=== PATIENT | male | born 1985 | race Caucasian/White ===

== ENCOUNTER 2017-04-27 20:30 | Emergency (ER) | payer MEDICAID, OTHER ==
[2017-04-27 20:35] VITALS: TEMP 98.1
--- NOTE | 2017-04-27 22:29 | ED PDOC ---
HPI: Psych/Substance Abuse Time Seen by Provider: 04/27/17 20:36 Chief Complaint (Nursing): Alcohol Ingestion Chief Complaint (Provider): Alcohol Ingestion Additional Complaint(s): 31 y/o male presents to the emergency department via ambulance after he was found drunk outside after alcohol intoxication. Reports he smoked PCP a few fays ago. Patient has no other history. Past Medical History Reviewed: Historical Data, Nursing Documentation, Vital Signs Vital Signs: Last Vital Signs Temp 98.1 F 04/27/17 20:32 Pulse 93 H 04/27/17 20:32 Resp 16 04/27/17 20:32 BP 150/78 04/27/17 20:32 Pulse Ox 98 04/27/17 20:32 - Medical History PMH: Fractures (Right Leg) Denies: Chronic Kidney Disease - Family History Family History: States: Unknown Family Hx - Immunization History Hx Tetanus Toxoid Vaccination: No (UTO) Hx Influenza Vaccination: No (UTO) Hx Pneumococcal Vaccination: No (UTO) - Home Medications Home Medications: Ambulatory Orders Medication Instructions Recorded No Known Home Med 05/02/15 - Allergies Allergies/Adverse Reactions: Allergies Allergy/AdvReac Type Severity Reaction Status Date / Time shellfish Allergy Unknown Uncoded 01/07/17 22:37 Review of Systems Review Of Systems: ROS cannot be obtained secondary to pt's inabilty to answer questions. (patient is intoxicated) Physical Exam - Reviewed Nursing Documentation Reviewed: Yes Vital Signs Reviewed: Yes - Physical Exam Appears: Positive for: Non-toxic, No Acute Distress Head Exam: Positive for: ATRAUMATIC, NORMAL INSPECTION, NORMOCEPHALIC Skin: Positive for: Normal Color, Warm, Dry Eye Exam: Positive for: Normal appearance (Bilateral bloodshot eyes) Cardiovascular/Chest: Positive for: Regular Rate, Rhythm. Negative for: Murmur Respiratory: Positive for: Normal Breath Sounds. Negative for: Accessory Muscle Use, Respiratory Distress Gastrointestinal/Abdominal: Positive for: Normal Exam, Soft. Negative for: Tenderness Neurologic/Psych: Positive for: Alert (Patient is somnolent. ) - Laboratory Results Result Diagrams: 04/28/17 07:10 04/28/17 07:10 - ECG O2 Sat by Pulse Oximetry: 98 (RA) Pulse Ox Interpretation: Normal Medical Decision Making Medical Decision Making: Time: 2048 Initial Impression: Alcohol intoxication Initial Plan: --Acetaminophen --Alcohol Serum --BMP --BMP --Drug Screen, Urine --Salicylate --CBC w/ diff --Urinalysis --Reevaluation --Pending sobriety Time: 2127 --AccuCheck: Normal 88 --Alcohol, Quantitative: 13 (H) 23:45 --Alcohol was low but waiting on detox. During reevaluation patient was confused , combative and walking in other people's room. Patient is agitated. He was restrained and given Haldol to relieve agitation. Waiting on urine and rest of labs. 03:18 --Patient is restless and screaming. He was placed on restraints again as pt is unsafe. 04:51 --Patient is calm and resting. Waiting for detox process for pcp. 05:52 --Patient still appears mildly confused due to effects of pcp. 07:00 Patient will be signed out to Dr. Soliman, pending sobriety and crisis evaluation Scribe~Attestation: Documented by Bianca Cuevas, acting as a scribe for River Talamantes MD. Provider Scribe~Attestation: All medical record entries made by the Scribe were at my direction and personally dictated by me. I have reviewed the chart and agree that the record accurately reflects my personal performance of the history, physical exam, medical decision making, and the department course for this patient. I have also personally directed, reviewed, and agree with the discharge instructions and disposition. Disposition - Clinical Impression Clinical Impression: PCP intoxication - Patient ED Disposition Is Patient to be Admitted: Transfer of Care - Disposition Referrals: [facility] [Outside] Disposition: Transfer of Care Disposition Time: 07:00 Condition: FAIR Instructions: Polysubstance Abuse (ED) Forms: [employer] (Burundian) Patient Signed Over To: Deng Soliman
[2017-04-28 06:52] VITALS: PULSE 70
[2017-04-28] MEDS ORDERED: DiphenhydrAMINE 50 mg/ml Inj IM STA (07:16)
[2017-04-28 07:19] LABS: BASO % 0.8 % (0.0-2.0); EOS # 0.1 K/uL (0.0-0.7); EOS % 1.2 % (0.0-4.0); HEMATOCRIT 39.5 % (35.0-51.0); LYMPH # 1.2 K/uL (1.0-4.3); LYMPH % 20.5 % (20.0-40.0); MEAN CELL VOLUME 95.2 fl (80.0-94.0); MEAN CORPUSCULAR HEMOGLOBIN 31.3 pg (27.0-31.0); MEAN CORPUSCULAR HGB CONC 32.9 g/dL (33.0-37.0); MONO # 0.6 K/uL (0.0-0.8); MONO % 10.2 % (0.0-10.0); NEUT # 4.1 K/uL (1.8-7.0); NEUT % 67.3 % (50.0-75.0); RED CELL DISTRIBUTION WIDTH 13.1 % (11.5-14.5)
--- NOTE | 2017-04-28 07:20 | ED PDOC ---
- Laboratory Results Result Diagrams: 04/28/17 07:10 04/28/17 07:10 - ECG O2 Sat by Pulse Oximetry: 98 (RA) - Progress Re-evaluation Time: 10:58 Condition: Improved Medical Decision Making Medical Decision Makin --Patient is signed over to me by Dr. Talamantes pending sobriety and crisis evaluation. Scribe Attestation: Documented by Mayo Rendon acting as a scribe for Deng Soliman MD. Scribe Attestation: All medical record entries made by the Scribe were at my direction and personally dictated by me. I have reviewed the chart and agree that the record accurately reflects my personal performance of the history, physical exam, medical decision making, and the department course for this patient. I have also personally directed, reviewed, and agree with the discharge instructions and disposition. Disposition - Clinical Impression Clinical Impression: PCP intoxication - POA Present On Arrival: None - Disposition Referrals: [facility] [Outside] Disposition: Routine/Home Disposition Time: 10:58 Condition: FAIR Instructions: Polysubstance Abuse (ED) Forms: [employer] (French)
[2017-04-28 07:32] LABS: ALCOHOL SERUM < 10 mg/dl (0-10); BLOOD UREA NITROGEN 18 mg/dl (9-20); CALCIUM 9.2 mg/dL (8.4-10.2); CARBON DIOXIDE 28 mmol/L (22-30); CHLORIDE 104 mmol/L (98-107); GFR AFRICAN-AMERICAN > 60; GLUCOSE,RANDOM 85 mg/dL (75-110); POTASSIUM 4.1 MMOL/L (3.6-5.0); SODIUM 140 mmol/l (132-148)
[2017-04-28 08:01] VITALS: BP 103/74; RESP 16
[2017-04-28 10:59] VITALS: O2SAT 98
== END 2017-04-28 11:07 | disposition home or self-care (01) ==
LOC: H.ER 20:30
DX: F16.929 Hallucinogen use, unspecified with intoxication, unspecified (principal); F10.129 Alcohol abuse with intoxication, unspecified
CPT/HCPCS: 80048; 80320; 80324; 80329; 80345; 80346; 80349; 80353; 80358; 80361; 82948; 83992; 85025; 96372; 99285; J1200; J1630

== ENCOUNTER 2017-06-20 21:42 | Emergency (ER) | payer MEDICAID, OTHER ==
[2017-06-20 21:55] VITALS: BP 118/72; PULSE 77; RESP 18; TEMP 97.6; O2SAT 96
[2017-06-20] MEDS ORDERED: Tdap Vaccine 0.5 ml Vial (10-64 yrs) IM ONE ×2 (22:54→23:30)
--- NOTE | 2017-06-21 00:14 | CT ---
EXAM: CT Head Without Intravenous Contrast EXAM DATE/TIME: 06/20/2017 10:54 PM CLINICAL HISTORY: 31 years old, male; Injury or trauma; Fall; Initial encounter; Abrasion and bleeding / hemorrhage and blunt trauma (contusions or hematomas); Consciousness not specified; Face and forehead; Additional info: ETOH, head injury S/P fall TECHNIQUE: Axial computed tomography images of the head/brain without intravenous contrast. All CT scans at this facility use one or more dose reduction techniques, viz.: automated exposure control; ma/kV adjustment per patient size (including targeted exams where dose is matched to indication; i.e. head); or iterative reconstruction technique. Coronal and sagittal reformatted images were created and reviewed. COMPARISON: There are no prior studies for comparison. FINDINGS: Brain: Ventricles are normal in size and configuration. There is no midline shift. There are no intra-axial or extra-axial mass lesions or areas of hemorrhage. There are no abnormal fluid collections. Louis-white differentiation is maintained. Ventricles: See above. Bones: Cranial vault is intact. Soft tissues: There is left frontal scalp swelling. Sinuses: There is no acute sinusitis. Ears and mastoids: Middle ears and mastoids are unremarkable Orbits: Orbital contents are unremarkable. IMPRESSION: No acute intracranial abnormality
--- NOTE | 2017-06-21 00:24 | ED PDOC ---
HPI: Psych/Substance Abuse Time Seen by Provider: 06/20/17 22:05 Chief Complaint (Nursing): Trauma Chief Complaint (Provider): Head Injury and Fall ED Caveat: Intoxicated History Per: EMS History/Exam Limitations: intoxication Onset/Duration Of Symptoms: Unknown Ingestion Of Substance: ETOH Modifying Factor(s): Alcohol Additional Complaint(s): 31 y/o male presents via EMS who reports that the patient had a witnessed fall in the snow, and sustained a laceration to his forehead. Per EMS, the patient admitted to [facility], and has a history of ETOH abuse. Patient is not cooperative on arrival and history is limited secondary to intoxication. PMD: none Past Medical History Reviewed: Historical Data, Nursing Documentation, Vital Signs Vital Signs: Last Vital Signs Temp 97.6 F 06/20/17 21:48 Pulse 77 06/20/17 21:48 Resp 18 06/20/17 21:48 BP 118/72 06/20/17 21:48 Pulse Ox 96 06/20/17 21:48 - Medical History PMH: Depression, Fractures (Right Leg) - Surgical History Other surgeries: leg surgery s/p fracture - Family History Family History: States: Unknown Family Hx - Social History Current smoker - smoking cessation education provided: Yes (1/2 pack per day) Alcohol: > 2 Drinks/Day Drugs: Denies - Immunization History Hx Tetanus Toxoid Vaccination: No (unknown) - Home Medications Home Medications: Ambulatory Orders Medication Instructions Recorded Bacitracin Ointment [Bacitracin] 5 gm TOP BID #30 gm 06/21/17 - Allergies Allergies/Adverse Reactions: Allergies Allergy/AdvReac Type Severity Reaction Status Date / Time shellfish Allergy Unknown SHORTNESS Uncoded 06/20/17 21:48 OF BREATH Review of Systems Review Of Systems: ROS cannot be obtained secondary to pt's inabilty to answer questions. Physical Exam - Reviewed Nursing Documentation Reviewed: Yes Vital Signs Reviewed: Yes - Physical Exam Appears: Positive for: No Acute Distress Head Exam: Positive for: NORMOCEPHALIC Skin: Positive for: Normal Color, Warm, Dry (1.5 cm linear, horizontal laceration just above the lateral aspect of the right eyebrow (-) tenderness (- ) swelling (-) ecchymosis (-) palpable deformity (-) active bleeding.) Eye Exam: Positive for: EOMI (and painless), PERRL, Conjunctival injection ( bilaterally). Negative for: Nystagmus, Periorbital swelling, Periorbital tenderness ENT: Positive for: Pharynx Is (clear, uvula midline.) Neck: Positive for: Painless ROM, Supple. Negative for: Pain On Movement Of Neck Cardiovascular/Chest: Positive for: Regular Rate, Rhythm Respiratory: Positive for: Normal Breath Sounds. Negative for: Decreased Breath Sounds, Respiratory Distress Gastrointestinal/Abdominal: Positive for: Soft. Negative for: Tenderness, Distended, Guarding Back: Negative for: Vertebral Tenderness Extremity: Negative for: Deformity Neurologic/Psych: Positive for: Other (Intoxicated) - ECG O2 Sat by Pulse Oximetry: 96 (RA) Pulse Ox Interpretation: Normal Medical Decision Making Medical Decision Making: Impression: Fall Plan: - FSBS 92 - Tetanus administered - ETOH level 93 - CT head without contract r/o intracranial injury - Laceration repair 1230 CT results follow: FINDINGS: Brain: Ventricles are normal in size and configuration. There is no midline shift. There are no intraaxial or extra-axial mass lesions or areas of hemorrhage. There are no abnormal fluid collections. Louis-white differentiation is maintained. Ventricles: See above. Bones: Cranial vault is intact. Soft tissues: There is left frontal scalp swelling. Sinuses: There is no acute sinusitis. Ears and mastoids: Middle ears and mastoids are unremarkable Orbits: Orbital contents are unremarkable. IMPRESSION: No acute intracranial abnormality Thank you for allowing us to participate in the care of your patient. Dictated and Authenticated by: Thea Frank MD 06/21/2017 12:14 AM Eastern Time ([place] & [place]) 0130 Forehead laceration repair performed by Elaina SHUKLA. Wound irrigated with normal saline and explored. No foreign body noted. No deep structure or tendon involvement. Wound closed with Prolene 6-0 x4 sutures. Bacitracin and DSD applied. Patient tolerated procedure well. 0330 Patient awake, alert, and oriented to person, place, and time. Patient ambulatory in ED with a steady gait and requesting to go home at this time. Patient stable for discharge. Return to ED with any new or worsening symptoms. Patient advised sutures need to be removed in 5 days. Educated on wound care. Scribe Attestation Documented by Destinee Johnson acting as a scrernst Delaney PA-C. Provider Attestation All medical record entries made by the Wayne were at my direction and personally dictated by me. I have reviewed the chart and agree that the record accurately reflects my personal performance of the history, physical exam, medical decision making, and the department course for this patient. I have also personally directed, reviewed, and agree with the discharge instructions and disposition. Disposition - Clinical Impression Clinical Impression: Alcohol intoxication, Head injury, Laceration of forehead - Patient ED Disposition Is Patient to be Admitted: No Counseled Patient/Family Regarding: Studies Performed, Diagnosis, Need For Followup, Rx Given - Disposition Referrals: [facility] [Outside] Disposition: Routine/Home Disposition Time: 03:35 Condition: STABLE Prescriptions: Bacitracin Ointment [Bacitracin] 5 gm TOP BID #30 gm Instructions: Concussion in Adults, Laceration Repair, Laceration Repair With Stitches (DC), Alcohol Abuse and Alcoholism (DC) Forms: [employer] (Sami) Print Language: SALVADOREAN
[2017-06-21] MEDS ORDERED: Lidocaine 1% Inj (20ml) ONE (01:58)
[2017-06-21] MEDS ORDERED: Lidocaine 1% Inj (20ml) IJ STA (02:00)
== END 2017-06-21 03:43 | disposition home or self-care (01) ==
LOC: H.ER 21:42
DX: F10.129 Alcohol abuse with intoxication, unspecified (principal); Y90.4 Blood alcohol level of 80-99 mg/100 ml; S09.90XA Unspecified injury of head, initial encounter; S01.81XA Laceration without foreign body of other part of head, initial encounter; W19.XXXA Unspecified fall, initial encounter; Z23 Encounter for immunization

== ENCOUNTER 2017-07-11 21:15 | Emergency (ER) | payer MEDICAID, OTHER ==
[2017-07-11 21:20] VITALS: BP 125/78; PULSE 92; RESP 18; TEMP 97.4; O2SAT 96
--- NOTE | 2017-07-11 22:06 | ED PDOC ---
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 Patient denies any PCP use but admits to using cocaine last night. He also denies any drug use today. Past Medical History Reviewed: Historical Data, Nursing Documentation, Vital Signs Vital Signs: Last Vital Signs Temp 97.4 F L 07/11/17 21:17 Pulse 92 H 07/11/17 21:17 Resp 18 07/11/17 21:17 BP 125/78 07/11/17 21:17 Pulse Ox 96 07/11/17 21:17 - Medical History PMH: Depression, Fractures (Right Leg) Denies: Diabetes, Hepatitis, HIV, HTN, Chronic Kidney Disease, Seizures, Sexually Transmitted Disease - Surgical History Surgical History: No Surg Hx - Family History Family History: States: Unknown Family Hx - Immunization History Hx Tetanus Toxoid Vaccination: No (unknown) Hx Influenza Vaccination: No (UTO) Hx Pneumococcal Vaccination: No (UTO) - Allergies Allergies/Adverse Reactions: Allergies Allergy/AdvReac Type Severity Reaction Status Date / Time shellfish Allergy Unknown SHORTNESS Uncoded 06/26/17 04:20 OF BREATH Review of Systems ROS Statement: Except As Marked, All Systems Reviewed And Found Negative Physical Exam - Reviewed Nursing Documentation Reviewed: Yes Vital Signs Reviewed: Yes - Physical Exam Appears: Positive for: Non-toxic, No Acute Distress (calm and cooperative ) Head Exam: Positive for: ATRAUMATIC, NORMOCEPHALIC Skin: Positive for: Normal Color, Warm, Dry Eye Exam: Positive for: EOMI, Normal appearance, PERRL Neck: Positive for: Normal, Painless ROM, Supple Cardiovascular/Chest: Positive for: Regular Rate, Rhythm Respiratory: Positive for: CNT, Normal Breath Sounds Extremity: Positive for: Normal ROM. Negative for: Deformity Neurologic/Psych: Positive for: Alert, Oriented (x 3), Gait (steady). Negative for: Motor/Sensory Deficits - ECG O2 Sat by Pulse Oximetry: 96 (RA) Pulse Ox Interpretation: Normal Medical Decision Making Medical Decision Making: Time: 21:23 Impression: drug abuse Patient is stable and will be discharged home. Return to ED if symptoms persist or worsen. Scribe Attestation: Documented by Brigitte Tong, acting as a scribe for Naif Kirkland MD. Provider Scribe Attestation: All medical record entries made by the Scribe were at my direction and personally dictated by me. I have reviewed the chart and agree that the record accurately reflects my personal performance of the history, physical exam, medical decision making, and the department course for this patient. I have also personally directed, reviewed, and agree with the discharge instructions and disposition. Disposition - Clinical Impression Clinical Impression: Cocaine abuse - Patient ED Disposition Is Patient to be Admitted: No - Disposition Referrals: [facility] [Outside] Disposition: Routine/Home Disposition Time: 22:00 Condition: STABLE Instructions: Cocaine Use Disorder Forms: [employer] (Irish)
== END 2017-07-11 21:57 | disposition home or self-care (01) ==
LOC: H.ER 21:15
DX: F14.10 Cocaine abuse, uncomplicated (principal); F32.9 Major depressive disorder, single episode, unspecified

== ENCOUNTER 2017-07-17 20:11 | Emergency (ER) | payer OTHER ==
[2017-07-17 20:23] VITALS: BP 123/79; PULSE 81; RESP 15; TEMP 97.2; O2SAT 97
[2017-07-17] MEDS ORDERED: Naproxen 500 MG TAB PO STA (21:00)
[2017-07-17] MEDS ORDERED: Naproxen 500 MG TAB PO ONE (21:12)
--- NOTE | 2017-07-17 21:24 | ED PDOC ---
Lower Extremity Pain/Injury Time Seen by Provider: 07/17/17 20:41 Chief Complaint (Nursing): Lower Extremity Problem/Injury Chief Complaint (Provider): Chronic right ankle pain History Per: Patient History/Exam Limitations: no limitations Onset/Duration Of Symptoms: Persistent Current Symptoms Are (Timing): Still Present Additional Complaint(s): 31 year old male with history of right ankle fracture presets to the ED complaining of right ankle pain. Patient reports pain is chronic and intermittent. He had suyrgery 2 years ago to repair a right ankle fracture and is here requesting pain medication. Otherwise: (-) no recent trauma, (-) injury , (-) swelling, (-) numbness, (-) weakness. PMD: Dr. Randell Pace MD Past Medical History Reviewed: Historical Data, Nursing Documentation, Vital Signs Vital Signs: Last Vital Signs Temp 97.2 F L 07/17/17 20:19 Pulse 81 07/17/17 20:19 Resp 15 07/17/17 20:19 BP 123/79 07/17/17 20:19 Pulse Ox 97 07/17/17 20:19 - Medical History PMH: Depression, Fractures (Right Leg (rt foot/ankle)) Denies: Diabetes, Hepatitis, HIV, HTN, Chronic Kidney Disease, Seizures, Sexually Transmitted Disease - Surgical History Other surgeries: right ankle repair - Family History Family History: States: Unknown Family Hx - Immunization History Hx Tetanus Toxoid Vaccination: No (unknown) Hx Influenza Vaccination: No (UTO) Hx Pneumococcal Vaccination: No (UTO) - Home Medications Home Medications: Ambulatory Orders Medication Instructions Recorded Ibuprofen [Motrin] 600 mg PO Q6H #14 tab 07/16/17 - Allergies Allergies/Adverse Reactions: Allergies Allergy/AdvReac Type Severity Reaction Status Date / Time shellfish Allergy Unknown SHORTNESS Uncoded 07/17/17 20:23 OF BREATH Review of Systems ROS Statement: Except As Marked, All Systems Reviewed And Found Negative Musculoskeletal: Positive for: Foot Pain (right ankle pain) Physical Exam - Reviewed Nursing Documentation Reviewed: Yes Vital Signs Reviewed: Yes - Physical Exam Comments: GENERAL APPEARANCE: Patient is awake, alert, oriented x 3, in no acute distress. SKIN: Warm, dry; (-) cyanosis EXTREMITY: (+) healed surgical scar to medical aspect of right ankle, (-) tenderness, (-) edema, (-) erythema, (+) full ROM, (+) distal pulses, (+) distal sensation intact. - ECG O2 Sat by Pulse Oximetry: 97 (RA) Pulse Ox Interpretation: Normal Medical Decision Making Medical Decision Making: Time: 21:00 Impression: ankle pain, consider arthritis Initial Plan: --Naproxen 500 mg PO Advised to follow up with the clinic in 1-2 days without fail. Return to the emergency room at any time for any new or worsening symptoms. Patient states he fully agrees with and understands discharge instructions. States that he agrees with the plan and disposition. Verbalized and repeated discharge instructions and plan. I have given the patient opportunity to ask any additional questions. ---- Scribe Attestation: Documented by Brigitte Tong, acting as a scribe for Becky Anand PA-C Provider Scribe Attestation: All medical record entries made by the Scribe were at my direction and personally dictated by me. I have reviewed the chart and agree that the record accurately reflects my personal performance of the history, physical exam, medical decision making, and the department course for this patient. I have also personally directed, reviewed, and agree with the discharge instructions and disposition. Disposition - Clinical Impression Clinical Impression: Ankle pain - Patient ED Disposition Is Patient to be Admitted: No Counseled Patient/Family Regarding: Diagnosis, Need For Followup - Disposition Referrals: [facility] [place] [Outside] Disposition: Routine/Home Disposition Time: 21:00 Condition: STABLE Additional Instructions: Thank you for letting us take care of you today. You were treated for R ankle pain, arthritis. The emergency medical care you received today was directed at your acute symptoms. Take prescription medication that was given to you from [facility] (formerly [facility] Return to the Emergency Department if your symptoms worsen, do not improve, or if you have any other problems. Please call one of the physicians/clinics you have been referred to that are listed on the Patient Visit Information form that is included in your discharge packet. Bring any paperwork you were given at discharge with you along with any medications you are taking to your follow up visit. Our treatment cannot replace ongoing medical care by a primary care provider (PCP) outside of the emergency department. Thank you for allowing the [facility] team to be part of your care today. 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
== END 2017-07-17 21:35 | disposition home or self-care (01) ==
LOC: H.ER 20:11
DX: M25.571 Pain in right ankle and joints of right foot (principal); F32.9 Major depressive disorder, single episode, unspecified

== ENCOUNTER 2017-08-03 17:41 | Emergency (ER) | payer OTHER ==
[2017-08-03 17:46] VITALS: BP 126/80; PULSE 72; RESP 18; TEMP 98.1; O2SAT 98
--- NOTE | 2017-08-03 19:17 | ED PDOC ---
HPI: Psych/Substance Abuse Time Seen by Provider: 08/03/17 18:01 Chief Complaint (Nursing): Alcohol Ingestion Chief Complaint (Provider): Alcohol Ingestion History Per: Patient History/Exam Limitations: no limitations Onset/Duration Of Symptoms: Other (prior to arrival) Current Symptoms Are (Timing): Still Present Additional Complaint(s): 31 y/o male presents to the ED for evaluation of alcohol ingestion. Patient states that he drank 1 pint of [place] earlier today, which resulted in [facility]. Patient denies any complaints at this time. PMD: None Past Medical History Reviewed: Historical Data, Nursing Documentation, Vital Signs Vital Signs: Last Vital Signs Temp 98.1 F 08/03/17 17:43 Pulse 72 08/03/17 17:43 Resp 18 08/03/17 17:43 BP 126/80 08/03/17 17:43 Pulse Ox 98 08/03/17 17:43 - Medical History PMH: Depression, Fractures (Right Leg (rt foot/ankle)), HTN Denies: Diabetes, Hepatitis, HIV, Chronic Kidney Disease, Seizures, Sexually Transmitted Disease - Family History Family History: States: Unknown Family Hx - Social History Current smoker - smoking cessation education provided: Yes (half a pack a day) Alcohol: Occasional Drugs: Cannabis, Other (PCP) - Home Medications Home Medications: Ambulatory Orders Medication Instructions Recorded No Known Home Med 07/22/17 - Allergies Allergies/Adverse Reactions: Allergies Allergy/AdvReac Type Severity Reaction Status Date / Time FISH Allergy Verified 07/22/17 01:10 shellfish Allergy Unknown SHORTNESS Uncoded 07/21/17 21:15 OF BREATH Review of Systems ROS Statement: Except As Marked, All Systems Reviewed And Found Negative Physical Exam - Reviewed Nursing Documentation Reviewed: Yes Vital Signs Reviewed: Yes - Physical Exam Comments: GENERAL APPEARANCE: Awake, alert, oriented x3 and in no acute distress. NECK: Supple, FROM ENT: Mucus membranes moist. HEART AND CARDIOVASCULAR: (-) irregularity; (-) murmur, (-) gallop. CHEST AND RESPIRATORY: (-) rales, (-) rhonchi, (-) wheezes; breath sounds equal. Respirations even and nonlabored. ABDOMEN: Soft, (-) distention, (-) tenderness, (-) guarding. NEURO AND PSYCH: Mental status as above. Ambulatory in ED with steady, unassisted gait. (-) slurred speech Affect: Calm and cooperative. - ECG O2 Sat by Pulse Oximetry: 98 (RA) Pulse Ox Interpretation: Normal Medical Decision Making Medical Decision Makin Clinical Impression: Alcohol ingestion Patient requires no further intervention in ED as he is ambulatory with steady gait and oriented x3. Patient currently expresses no medical complaints. Stable for discharge. VSS. Patient states he fully agrees with and understands discharge instructions. States that he agrees with the plan and disposition. Verbalized and repeated discharge instructions and plan. I have given the patient opportunity to ask any additional questions. Scribe Attestation: Documented by Mayo Rendon, acting as a scribe for Dyana Delaney PA-C. Provider Scribe Attestation: All medical record entries made by the Scribe were at my direction and personally dictated by me. I have reviewed the chart and agree that the record accurately reflects my personal performance of the history, physical exam, medical decision making, and the department course for this patient. I have also personally directed, reviewed, and agree with the discharge instructions and disposition. Disposition - Clinical Impression Clinical Impression: Alcohol ingestion - Patient ED Disposition Is Patient to be Admitted: No Counseled Patient/Family Regarding: Diagnosis, Need For Followup - Disposition Referrals: [facility] [Outside] Disposition: Routine/Home Disposition Time: 19:17 Condition: STABLE Instructions: Alcohol Use - When Is Drinking a Problem?, Effects of Alcohol on Your Health Forms: [employer] (Latvian) Print Language: MALAY
== END 2017-08-03 19:38 | disposition home or self-care (01) ==
LOC: H.ER 17:41
DX: F10.10 Alcohol abuse, uncomplicated (principal); F32.9 Major depressive disorder, single episode, unspecified; I10 Essential (primary) hypertension

== ENCOUNTER 2017-08-03 22:33 | Emergency (ER) | payer OTHER ==
[2017-08-03 22:39] VITALS: BP 116/79; PULSE 63; RESP 18; TEMP 97.3; O2SAT 99
--- NOTE | 2017-08-03 23:38 | ED PDOC ---
HPI: Psych/Substance Abuse Time Seen by Provider: 08/03/17 23:31 Chief Complaint (Nursing): Alcohol Ingestion Chief Complaint (Provider): etoh History Per: EMS Additional Complaint(s): 31 y/o male brought in by EMS for evaluation of alcohol intoxication. Patient was found sleeping in public. Patient discharged from ED approximately 1.5 hours earlier for same after being [facility]; states he drank a little more since being discharged. Patient denies acute medical or psychiatric complaints. Past Medical History Reviewed: Historical Data, Nursing Documentation, Vital Signs Vital Signs: Last Vital Signs Temp 97.3 F L 08/03/17 22:37 Pulse 63 08/03/17 22:37 Resp 18 08/03/17 22:37 BP 116/79 08/03/17 22:37 Pulse Ox 99 08/03/17 22:37 - Medical History PMH: Depression, Fractures (Right Leg (rt foot/ankle)), HTN Denies: Diabetes, Hepatitis, HIV, Chronic Kidney Disease, Seizures, Sexually Transmitted Disease - Family History Family History: States: Unknown Family Hx - Immunization History Hx Tetanus Toxoid Vaccination: No (unknown) Hx Influenza Vaccination: No (UTO) Hx Pneumococcal Vaccination: No (UTO) - Home Medications Home Medications: Ambulatory Orders Medication Instructions Recorded No Known Home Med 07/22/17 - Allergies Allergies/Adverse Reactions: Allergies Allergy/AdvReac Type Severity Reaction Status Date / Time FISH Allergy Verified 07/22/17 01:10 shellfish Allergy Unknown SHORTNESS Uncoded 07/21/17 21:15 OF BREATH Review of Systems ROS Statement: Except As Marked, All Systems Reviewed And Found Negative Physical Exam - Reviewed Nursing Documentation Reviewed: Yes Vital Signs Reviewed: Yes - Physical Exam Appears: Positive for: Well, Non-toxic, No Acute Distress Head Exam: Positive for: ATRAUMATIC, NORMAL INSPECTION, NORMOCEPHALIC Skin: Positive for: Normal Color Eye Exam: Positive for: Normal appearance ENT: Positive for: Normal ENT Inspection Cardiovascular/Chest: Positive for: Regular Rate, Rhythm Respiratory: Positive for: Normal Breath Sounds Gastrointestinal/Abdominal: Positive for: Normal Exam Back: Positive for: Normal Inspection Extremity: Positive for: Normal ROM Neurologic/Psych: Positive for: Alert - ECG O2 Sat by Pulse Oximetry: 99 - Progress ED Course And Treament: accucheck Patient awake, alert, oriented x3. Ambulating steady gait. Stable for discharge Disposition - Clinical Impression Clinical Impression: Alcohol abuse, Homeless - Patient ED Disposition Is Patient to be Admitted: No Counseled Patient/Family Regarding: Studies Performed, Diagnosis, Need For Followup - Disposition Disposition: Routine/Home Disposition Time: 23:45 Condition: STABLE Instructions: Alcohol Abuse and Alcoholism (DC)
== END 2017-08-03 23:47 | disposition home or self-care (01) ==
LOC: H.ER 22:33
DX: F10.129 Alcohol abuse with intoxication, unspecified (principal); F32.9 Major depressive disorder, single episode, unspecified; I10 Essential (primary) hypertension; Z59.0 Homelessness